=== PATIENT | female | born 1970 | race Caucasian/White ===

== ENCOUNTER 2020-05-31 10:32 | Emergency (ER) | payer MEDICAID, SELFPAY ==
[~2020-05-31] VITALS: Ht 160 cm; Wt 81.1 kg
--- NOTE | 2020-05-31 10:59 | NUR ---
THIS IS A 49 YO F W/ C/O BILAT LWR ABD PAIN SINCE TUESDAY. PT ALSO REPORTS URINARY FREQUENCY AND PAIN W/ URINATION. PT AWAKE AND ALERT. RESP EVEN AND UNLABORED, NADN. PT AMBULATED TO THE BR W/ A STEADY GAIT. PROVIDED URINE CUP FOR SAMPLE.
[2020-05-31 11:19] LABS: MICROSCOPIC INDICATED
[2020-05-31 11:35] LABS: BASOPHILS % (AUTO) 1 % (0-1); EOSINOPHILS % (AUTO) 1 % (1-7); LYMPHOCYTES % (AUTO) 44 % (22-44); MEAN CORPUSCULAR HEMOGLOBIN 29.8 pg (27.0-34.8); MEAN CORPUSCULAR HGB CONC 34.1 g/dL (32.4-35.8); MEAN PLATELET VOLUME 9.4 fL (7.4-10.4); MONOCYTES % (AUTO) 6 % (2-9); NEUTROPHILS % (AUTO) 48 % (42-75); PLATELET COUNT 211 x10^3/uL (130-400); RED BLOOD COUNT 4.76 x10^6/uL (3.82-5.3); RED CELL DISTRIBUTION WIDTH 13.3 % (9.6-15.2)
[2020-05-31 11:39] LABS: MD NO
[2020-05-31 11:47] LABS: ANION GAP 6 mmol/L (5-15); CALCIUM 9.4 mg/dL (8.5-10.1); CHLORIDE 112 mmol/L (98-107); CREATININE 0.83 mg/dL (0.55-1.02)
[2020-05-31 12:00] VITALS: BP 120/81
--- NOTE | 2020-05-31 12:00 | NUR ---
ALL TESTS RESULTED. PT IS UP FOR RECHECK AT THIS TIME.
--- NOTE | 2020-05-31 12:57 | NUR ---
Patient given discharge instructions and they have confirmed that they understand the instructions. Patient ambulatory with steady gait.
== END 2020-05-31 12:58 | disposition home or self-care (01) ==
LOC: ED 11:27
DX: R30.0 Dysuria (principal); R10.32 Left lower quadrant pain; R10.31 Right lower quadrant pain; M54.5 Low back pain; M79.7 Fibromyalgia; G89.29 Other chronic pain; Z90.710 Acquired absence of both cervix and uterus
CPT/HCPCS: 36415; 80048; 81001; 82040; 85025; 99283